=== PATIENT | female | born 1945 | race Caucasian/White ===

== ENCOUNTER 2020-08-21 16:02 | Emergency (ER) | payer MEDICARE ==
[~2020-08-21] VITALS: Ht 165.1 cm; Wt 86.6 kg
[~2020-08-21 16:02] MED LIST: ATIVAN1 MG PO; CITALOPRAM HBR20 MG PO; LEVOTHROID100 MCG PO
[2020-08-21] MEDS ORDERED: ACETAMINOPHEN 325 MG TAB PO ONE (16:15)
[2020-08-21] MEDS ORDERED: IBUPROFEN 200 MG TAB PO ONE (16:15)
[2020-08-21] MEDS ORDERED: GABAPENTIN300 MG PO (16:17)
[2020-08-21] MEDS ORDERED: MUSCLE RELAXOR (16:17)
[2020-08-21] MEDS ORDERED: ULTRAM 50MG50 MG PO (16:23)
[2020-08-21] MEDS ORDERED: IBUPROFEN 600 MG TAB ONE (16:26)
[2020-08-21] MEDS ORDERED: ACETAMINOPHEN 325 MG TAB ONE (16:27)
[2020-08-21] MEDS ORDERED: XARELTO15 MG PO (18:23)
[2020-08-21] MEDS ORDERED: XARELTO20 MG PO (18:23)
[2020-08-21] MEDS ORDERED: ENOXAPARIN SODIUM INJ 100 MG/ML SYR SC NR (18:30)
== END 2020-08-21 19:29 | disposition home or self-care (01) ==
LOC: FSED 16:49
DX: I82.441 Acute embolism and thrombosis of right tibial vein (principal); M62.831 Muscle spasm of calf; E11.65 Type 2 diabetes mellitus with hyperglycemia; E03.9 Hypothyroidism, unspecified; F41.9 Anxiety disorder, unspecified; M54.9 Dorsalgia, unspecified; G89.29 Other chronic pain
CPT/HCPCS: 80048; 85025; 85610; 93971; 99283; J1650

== ENCOUNTER 2021-04-01 17:19 | Emergency (ER) | payer MEDICARE ==
[~2021-04-01] VITALS: Ht 162.6 cm; Wt 94.3 kg
[~2021-04-01 17:19] MED LIST changes: +GABAPENTIN300 MG PO; +MUSCLE RELAXOR; +ULTRAM 50MG50 MG PO; +XARELTO15 MG PO; +XARELTO20 MG PO
[2021-04-01] MEDS ORDERED: ENOXAPARIN SODIUM INJ 100 MG/ML SYR SC STA (19:46)
[2021-04-01] MEDS ORDERED: ENOXAPARIN SODIUM INJ 100 MG/ML SYR SC ONE (19:58)
[2021-04-01] MEDS ORDERED: XARELTO10 MG PO (19:58)
[2021-04-01 20:30] VITALS: BP 172/80
== END 2021-04-01 20:30 | disposition home or self-care (01) ==
LOC: FSED 17:40
DX: M79.661 Pain in right lower leg (principal); I82.431 Acute embolism and thrombosis of right popliteal vein; I10 Essential (primary) hypertension; E11.9 Type 2 diabetes mellitus without complications; F41.9 Anxiety disorder, unspecified; E03.9 Hypothyroidism, unspecified
CPT/HCPCS: 93970; 93971; 99283; J1650

== ENCOUNTER 2024-08-04 19:38 | Emergency (ER) | payer MEDICARE ==
[~2024-08-04] VITALS: Ht 162.6 cm; Wt 94.3 kg
[~2024-08-04 19:38] MED LIST changes: +XARELTO10 MG PO
[2024-08-04 19:59] VITALS: PULSE 80; RESP 20; TEMP 98.5
[2024-08-04] MEDS: KETOROLAC TROMETHAMINE 60 MG/2 ML VIAL IM ONE (20:44)
[2024-08-04] MEDS ORDERED: ULTRAM 50MG50 MG PO (21:13)
[2024-08-04 21:29] VITALS: BP 123/75; O2SAT 100
== END 2024-08-04 21:25 | disposition home or self-care (01) ==
LOC: ER 19:42
DX: M79.661 Pain in right lower leg (principal); I10 Essential (primary) hypertension; E11.9 Type 2 diabetes mellitus without complications; E03.9 Hypothyroidism, unspecified; F41.9 Anxiety disorder, unspecified; M54.9 Dorsalgia, unspecified; G89.29 Other chronic pain; Z86.718 Personal history of other venous thrombosis and embolism; Z79.01 Long term (current) use of anticoagulants
CPT/HCPCS: 93971; 99283; J1885